=== PATIENT | male | born 1960 | race Two or more races ===

== ENCOUNTER → 2020-10-08 | Outpatient (CLI) | payer SELFPAY ==
[~2020-10-08] MED LIST: IOHEXOL 240 MG/ML 50ML VIAL. PO ONE; IOHEXOL 300 MG/ML 100ML VIAL. IV ONE; LOSA25TA54 PO
--- NOTE | 2020-10-08 15:35 | KCIC ---
EXAM: CT ABDOMEN/PELVIS WITH CONTRAST. HISTORY: Left lower quadrant pain, dysuria. TECHNIQUE: Computed tomography of the abdomen and pelvis was performed after the intravenous administ ration of iodinated contrast. One or more of the following individualized dose reduction techniques w ere utilized for this examination: 1. Automated exposure control. 2. Adjustment of the mA and/or kV according to patient size. 3. Use of iterative reconstruction technique. COMPARISON: None. FINDINGS: Lung windows through the visualized portions of the bases reveal pacemaker leads in the rig ht ventricle. Bone windows reveal no suspicious lesions. A tiny hypoattenuating lesion in hepatic segment 8 is likely a cyst. The gallbladder, pancreas, splee n and adrenal glands are unremarkable. The right renal collecting system is mildly prominent to the l evel of the ureteropelvic junction. There is no clear caliectasis. No cause for obstruction is identi fied. A benign right renal cyst measures 10 mm. The left kidney is unremarkable. The appendix demonstrates mild wall thickening and is at the upper limits of normal caliber at 7 mm. There is no surrounding inflammatory change. The prostate is mildly to moderately enlarged. A small u mbilical hernia contains only fat. There is no small bowel obstruction. Stool throughout the colon is consistent with constipation. IMPRESSION: 1. The appendix is at the upper limits of normal caliber with but is not clearly inflamed. Correlate with other data to exclude early appendicitis. 2. Prominence of the right renal collecting system may reflect an extra renal pelvis or mild ureterop elvic junction disproportion. No clear hydronephrosis. 3. Correlate for mild constipation. Electronically signed by: Jacob Gee MD (10/08/2020 3:32 PM) [facility]
== END ==
LOC: KCIC CT 13:18
PROVIDERS: ATTEND Family Medicine
DX: N28.1 Cyst of kidney, acquired (principal); K59.00 Constipation, unspecified; R30.0 Dysuria; N40.0 Benign prostatic hyperplasia without lower urinary tract symptoms; K42.9 Umbilical hernia without obstruction or gangrene; K37 Unspecified appendicitis; K65.1 Peritoneal abscess
CPT/HCPCS: 74177; Q9966; Q9967